=== PATIENT | male | born 1945 | race Caucasian/White ===

== ENCOUNTER → 2017-09-28 | Outpatient (CLI) | payer MEDICARE, MEDICAID ==
[~2017-09-28] MED LIST: ALLOPURINOL 30300 M1 PO; ASPIR 8181 MG PO; CALCIUM 600 +1 EAC2 PO; CARDIZEM CD120 MG PO; COUMADIN 3 MG TA3 M1 PO; COUMADIN 5 MG TA5 M1 PO; KEFLEX500 M1 PO; LASIX 40 MG TAB40 M2 PO; LOPRESSOR100 M1 PO; NORCO 5-325 TA1 EACH PO; POTASSIUM20 PO; PRINIVIL5 MG PO; SORINE 80 MG TA80 M1 PO; ZANTAC 150MG T150 M1 PO; ZOCOR20 MG PO
[2017-09-28 14:13] LABS: ABSOLUTE BASOPHILS 0.1 thou/uL (0.0-0.2); ABSOLUTE EOSINOPHILS 0.2 thou/uL (0.0-0.7); ABSOLUTE LYMPHOCYTES 1.4 thou/uL (0.8-5.3); ABSOLUTE MONOCYTES 0.6 thou/uL (0.0-1.2); ABSOLUTE NEUTROPHILS 6.1 thou/uL (1.6-8.1); BASOPHILS 0.7 %; HEMATOCRIT 45.5 % (42.0-52.0); HEMOGLOBIN 15.1 gm/dL (14.0-18.0); LYMPHOCYTES 17.1 %; MCH 30.3 pg (26.0-34.0); MCHC 33.1 g/dL (28.0-37.0); MCV 91.6 fL (80.0-100.0); MONOCYTES 7.3 %; MPV 10.4 fl. (7.2-11.1); NUCLEATED RBCS 0 /100WBC; PLATELET COUNT* 174 thou/uL (150-400); POLYS 72.9 %; RBC 4.97 mil/uL (4.50-6.00); RDW-CV 15.1 % (10.5-14.5); WBC 8.3 thou/uL (4.0-11.0)
[2017-09-28 14:26] LABS: ALBUMIN 4.1 g/dL (3.4-5.0); CALCIUM 8.8 mg/dL (8.5-10.1); CREATININE 1.2 mg/dL (0.6-1.3); POTASSIUM 4.2 mmol/L (3.5-5.1); TOTAL BILIRUBIN 0.5 mg/dL (<0.1-1.0); TOTAL PROTEIN 7.1 g/dL (6.4-8.2)
== END ==
LOC: M.LAB 13:54
PROVIDERS: Nurse Practitioner
DX: R00.2 Palpitations (principal)

== ENCOUNTER 2017-12-22 09:16 | Inpatient (IN) | payer MEDICARE, MEDICAID ==
[~2017-12-22] VITALS: Ht 182.9 cm; Wt 81.2 kg
[2017-12-22 09:45] VITALS: BP 139/84
[2017-12-22 10:05] LABS: HEMATOCRIT 45.6 % (42.0-52.0); HEMOGLOBIN 15.2 gm/dL (14.0-18.0); MCH 30.3 pg (26.0-34.0); MCHC 33.3 g/dL (28.0-37.0); MCV 91.1 fL (80.0-100.0); MPV 10.3 fl. (7.2-11.1); WBC 5.9 thou/uL (4.0-11.0)
[2017-12-22 10:15] LABS: ANION GAP 4 mmol/L (7-16); BUN 18 mg/dL (7-18); CHLORIDE 103 mmol/L (98-107); CO2 34 mmol/L (21-32); CREATININE 1.1 mg/dL (0.6-1.3); GLUCOSE 120 mg/dL (70-99); POTASSIUM 4.2 mmol/L (3.5-5.1); SODIUM 141 mmol/L (136-145)
[2017-12-22] MEDS ORDERED: PRINIVIL5 MG PO (10:15)
[2017-12-22] MEDS ORDERED: ASPIR 8181 MG PO (10:15)
[2017-12-22] MEDS ORDERED: ZANTAC 150MG T150 M1 PO (10:16)
[2017-12-22] MEDS ORDERED: ALLOPURINOL 30300 M1 PO (10:17)
[2017-12-22] MEDS ORDERED: CALCIUM 600 +1 EAC2 PO (10:18)
[2017-12-22] MEDS ORDERED: LASIX 40 MG TAB40 M2 PO (10:18)
[2017-12-22 10:19] LABS: ALBUMIN 4.2 g/dL (3.4-5.0); ALKALINE PHOSPHATASE 64 U/L (46-116); CHOLESTEROL 167 mg/dL (<200); HDL CHOLESTEROL 58 mg/dL (>40); LDL CHOLESTEROL 94 mg/dL (<100); SERUM ASSESSMENT Clear; SGOT 22 U/L (15-37); SGPT 21 U/L (30-65); TC:HDL 2.9 Ratio (Not establshd); TOTAL BILIRUBIN 0.9 mg/dL (<0.1-1.0); TOTAL PROTEIN 7.4 g/dL (6.4-8.2); TRIGLYCERIDE 77 mg/dL (<150); VLDL 15 mg/dL (<40)
[2017-12-22] MEDS ORDERED: ZOCOR20 MG PO (10:19)
[2017-12-22] MEDS ORDERED: POTASSIUM20 PO (10:19)
[2017-12-22] MEDS ORDERED: CARDIZEM CD120 MG PO (10:20)
[2017-12-22] MEDS ORDERED: COUMADIN 3 MG TA3 M1 PO (10:22)
[2017-12-22] MEDS ORDERED: COUMADIN 5 MG TA5 M1 PO (10:23)
[2017-12-22 10:25] LABS: INR 2.4; PROTIME 23.3 Seconds (9.20-11.50)
[2017-12-22] MEDS ORDERED: LOPRESSOR100 M1 PO (10:29)
[2017-12-22 12:04] VITALS: BP 137/80
[2017-12-22 16:03] VITALS: BP 111/78
--- NOTE | 2017-12-22 18:19 | EKG ---
[place] [address] ELECTROCARDIOGRAM REPORT Name: BETTIE MADDEN Room: [address] ADM IN 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
[2017-12-22 20:00] VITALS: BP 102/74
[2017-12-23] VITALS (13 sets, daily range): BP systolic 106–140; BP diastolic 65–87
[2017-12-23 04:51] LABS: INR 2.8; PROTIME 27.2 Seconds (9.20-11.50)
--- NOTE | 2017-12-23 13:49 | EKG ---
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 : 1945 Requested By: Antoni Bond Order Number: [id number] Eliseo MD: Antoni Bond Measurements Intervals [place] Rate: 100 P: [place]: QRS: 47 QRSD: 99 T: 26 QT: 368 QTc: 475 Interpretive Statements Atrial flutter Multiple ventricular premature complexes Compared to ECG 12/22/2017 10:09:33 Right bundle-branch block no longer present Electronically Signed On 12-23-2017 13:49:29 CDT by Antoni Bond [email or web address] <ELECTRONICALLY SIGNED> By: Antoni Bond MD, [facility] 12/23/17 1349 0805 0805 Antoni Bond MD, [facility] /EPI
--- NOTE | 2017-12-23 17:05 | EKG ---
[place] [address] ELECTROCARDIOGRAM REPORT Name: BETTIE MADDEN Room: [address] IN 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 : 1945 Requested By: Antoni Bond Order Number: [id number] Eliseo MD: Antoni Bond Measurements Intervals [place] Rate: 69 P: [place]: QRS: 58 QRSD: 109 T: 56 QT: 457 QTc: 490 Interpretive Statements Atrial flutter with predominant 4:1 AV block RSR' in V1 or V2, right VCD or RVH Compared to ECG 12/23/2017 08:05:44 Ventricular premature complex(es) no longer present Electronically Signed On 12-23-2017 17:05:38 CDT by Antoni Bond [email or web address] <ELECTRONICALLY SIGNED> By: Antoni Bond MD, [facility] 12/23/17 1705 1313 1313 Antoni Bond MD, [facility] /EPI
--- NOTE | 2017-12-23 17:06 | EKG ---
[place] [address] ELECTROCARDIOGRAM REPORT Name: BETTIE MADDEN Room: [address] ADM IN [facility]#: [id number] Admission: 12/22/17 Attend Phys: Antoni Bond MD, F Discharge: Date of : 49 Report #: [id number] THIS REPORT FOR: //name// [facility] Test Date: 2017-12-23 Test Time: 13:29:04 Pat Name: BETTIE MADDEN Department: Room: [address] Gender: M Director Of Operations: BS : 1945 Requested By: Antoni Bond Order Number: [id number] Eliseo MD: Antoni Bond Measurements Intervals [place] Rate: 69 P: 47 [place]: 190 QRS: 48 QRSD: 91 T: 45 QT: 426 QTc: 457 Interpretive Statements Sinus rhythm early transition Electronically Signed On 12-23-2017 17:06:25 CDT by Antoni Bond [email or web address] <ELECTRONICALLY SIGNED> By: Antoni Bond MD, [facility] 12/23/17 1706 1329 1329 Antoni Bond MD, FACC /EPI
--- NOTE | 2017-12-23 18:28 | CARDNUC ---
[place] [address] CARDIAC NUCLEAR IMAGING REPORT Name: BETTIE MADDEN Room: [address] IN [facility]#: [id number] Admission: 12/22/17 Attend Phys: Antoni Bond MD Discharge: Date of : 49 Date of Service: 12/23/17 1827 Report #: [id number] THIS REPORT FOR: //name// APPROVED REPORT Study performed: 12/22/2017 14:38:00 Exam: Nuclear Stress Test Indication: dyspnea, tachycardia, a fib Patient Location: In-Patient Room #: 215 Stress Tech: Adriana Hitchcock Stress Nurse: Maggy Pompa RN NM Tech:DALJIT Hutchinson Ht: 6 ft 0 in Wt: 183 lbs BSA: 2.05 m2 BMI: 24.81 Medical History Medical History: cabg, cad, hypertension, a fib Medications: sotal, warfarin, atorvastatin, diltiazem Allergies: nkda Cardiac Risk Factors: age, hyperlipidemia, hypertension, family history Previous Cardiac Procedures: cabg Exercise History: Physically active Stress Test Details Stress Test: Pharmacologic stress testing performed using 0.4 mg of regadenoson per 5 mL given IV over 10 seconds. Reason for pharmacologic stress test: a fib. HR Resting HR: 98 bpm Max Heart Rate (APMHR): 150 bpm Max HR Achieved: 93 bpm Target HR (85% APMHR): 127 bpm % of APMHR: 62 Recovery HR: 98 bpm BP Resting BP: 128/98 mmHg Max BP: 155/83 mmHg ECG Resting ECG: atrial flutter with unifocal [place] [address] CARDIAC NUCLEAR IMAGING REPORT Name: BETTIE MADDEN Room: [address]#: [id number] Admission: 12/22/17 Attend Phys: Antoni Bond MD Discharge: Date of : 49 Date of Service: 12/23/17 1827 Report #: [id number] Stress ECG: atrial flutter with unifocal premature ventricular contractions ST Change: None Recovery ECG: atrial flutter with unifocal premature ventricular contractions Recovery ST Change: None Clinical Reason for Termination: Completed protocol Stress Symptoms: none Exercise duration: 0 min sec Exercise capacity: 1 METs Functional Aerobic Impairment 65% The patient tolerated Lexiscan infusion without significant symptoms. Nurse Comments pt tolerated well Stress ECG Conclusion The baseline 12-lead electrocardiogram shows atrial flutter with a controlled ventricular response rate. There are unifocal premature ventricular contractions noted in a pattern of trigeminy. EKGs obtained during and post Lexiscan infusion showed continued atrial flutter with no significant ST or T wave changes when compared to baseline. NM EXAM: Myocardial Perfusion REST/STRESS Imaging Protocol: Rest Tc-99m/Stress Tc-99m 2 days Resting Data Rest SPECT myocardial perfusion imaging was performed in supine position 30 minutes following the intravenous injection of 12.0 mCi of Tc-99m Sestamibi. Time of rest injection: 1450 Date: 12/22/2017 Time of rest imagin The images were gated to evaluate regional wall motion and calculate left ventricular ejection fraction. Administration Route: IV Administration Site: Right AC Pharmacologic Stress Pharmacologic stress test was performed by injecting Regadenoson 0.4 mg IV push followed by the intravenous injection of 34.7 mCi of Tc-99m Sestamibi. Time of stress injection: 909 Date: 12/23/2017 [place] [address] CARDIAC NUCLEAR IMAGING REPORT Name: BETTIE MADDEN Room: [address]#: [id number] Admission: 12/22/17 Attend Phys: Antoni Bond MD Discharge: Date of : 49 Date of Service: 12/23/17 1827 Report #: [id number] Time of stress imagin Administration Route: IV Administration Site: Right AC Gated Stress SPECT was performed 40 minutes after stress injection. The images were gated to evaluate regional wall motion and calculate left ventricular ejection fraction. Prone imaging was performed. Study Quality Study: Good Artifact: Mild Diaphragmatic artifact Study Data At rest, the left ventricular ejection fraction was 43%.. Post stress, the left ventricular ejection was 48%.. TID = 1.54. Perfusion There is a small in size moderate intensity reversible defect involving the inferoapical wall. No other significant fixed or reversible defects identified. Wall Motion There is a septal wall motion abnormality noted consistent with prior bypass procedure. There is hypokinesis noted of the distal anteroapical wall. Nuclear Conclusion ECG Findings: negative for ischemia Clinical Findings: negative for ischemia Nuclear Findings: positive for ischemia Exercise Capacity: not assessed Left Ventricular Function: abnormal Risk Study: moderate Myocardial perfusion images suggest stress-induced ischemia the inferoapical wall. There are wall motion abnormalities as noted above. In addition there is transient ischemic dilatation noted. This is a moderate risk study. <Conclusion> The baseline 12-lead electrocardiogram shows atrial flutter with a controlled ventricular response rate. There are unifocal premature ventricular contractions noted in a pattern of trigeminy. EKGs obtained during and post Lexiscan infusion [place] [address] CARDIAC NUCLEAR IMAGING REPORT Name: BETTIE MADDEN Room: [address] IN [facility]#: [id number] Admission: 12/22/17 Attend Phys: Antoni Bond MD Discharge: Date of : 49 Date of Service: 12/23/17 1827 Report #: [id number] flutter with no significant ST or T wave changes when compared to baseline. <ELECTRONICALLY SIGNED> By: Aiden Dickinson MD, FACC 12/23/171826 26 26 Aiden Dickinson MD, FACC /INF
[2017-12-24] VITALS: BP 124/75
[2017-12-24 04:00] VITALS: BP 116/68
[2017-12-24 05:07] LABS: INR 2.2; PROTIME 20.9 Seconds (9.20-11.50)
[2017-12-24 08:15] VITALS: BP 146/91
[2017-12-24 09:08] VITALS: BP 146/91
[2017-12-24] MEDS ORDERED: SORINE 80 MG TA80 M1 PO (11:13)
--- NOTE | 2017-12-24 11:51 | EKG ---
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: [facility] : 1945 Requested By: Antoni Bond Order Number: [id number] Eliseo MD: Antoni Bond Measurements Intervals [place] Rate: 94 P: 53 VT: 188 QRS: 57 QRSD: 98 T: 56 QT: 386 QTc: 483 Interpretive Statements Sinus rhythm Multiple ventricular premature complexes Borderline prolonged QT interval Compared to ECG 12/23/2017 13:29:04 Ventricular premature complex(es) now present Electronically Signed On 12-24-2017 11:51:00 CDT by Antoni Bond [email or web address] <ELECTRONICALLY SIGNED> By: Antoni Bond MD, [facility] 12/24/17 1151 1716 1716 Antoni Bond MD, [facility] /EPI
[2017-12-24 11:59] VITALS: BP 128/77
--- NOTE | 2017-12-24 12:01 | EKG ---
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
--- NOTE | 2018-01-19 12:51 | CARD ---
[address] [address] CARDIAC CATH REPORT Name: BETTIE MADDEN Room: [address] IN .#: [id number] Admission: 12/22/17 Attend Phys: Antoni Bond MD, F Discharge: 12/24/17 Date of : 49 Report #: [id number] THIS REPORT FOR: //name// CC: Primo Diallo [facility] physician/PCP DATE OF SERVICE: 12/23/2017 TITLE OF PROCEDURE: Direct current cardioversion. INDICATIONS: Atrial fibrillation. PROCEDURE: The patient had a history of atrial fibrillation and had been chronically anticoagulated with warfarin. INR was therapeutic at the time of the procedure. The patient was brought to the cardiac cath holding area in the fasting state. Hands free cardioversion patches were applied in the anterior and posterior location. Moderate sedation was accomplished by administering both intravenous Versed and fentanyl. Cardioversion was applied using direct current energy at 360 joules. The patient converted from atrial fibrillation to normal sinus rhythm. The patient was aroused at the end of procedure and was transferred to a monitored bed in stable condition. The patient tolerated the procedure well. IMPRESSION: Successful cardioversion of atrial fibrillation to normal sinus rhythm. <ELECTRONICALLY SIGNED> By: Antoni Bond MD, [facility] 01/19/18 1251 1551 0029David Tova Bond MD, FACC /nt
== END 2017-12-24 13:30 | disposition home or self-care (01) | DRG 309 ==
LOC: M.TBA 09:16 → M.2W 09:16
PROVIDERS: ADMIT Internal Medicine Cardiovascular Disease
PROC: 5A2204Z Restoration of Cardiac Rhythm, Single (ICD-10-PCS; principal; 2017-12-23)
DX: I48.91 Unspecified atrial fibrillation (principal); D68.59 Other primary thrombophilia; I10 Essential (primary) hypertension; I25.10 Atherosclerotic heart disease of native coronary artery without angina pectoris; E78.5 Hyperlipidemia, unspecified; I49.3 Ventricular premature depolarization; I65.29 Occlusion and stenosis of unspecified carotid artery; I48.92 Unspecified atrial flutter; I73.9 Peripheral vascular disease, unspecified; Z95.1 Presence of aortocoronary bypass graft; Z79.82 Long term (current) use of aspirin; Z87.891 Personal history of nicotine dependence; Z79.899 Other long term (current) drug therapy; Z82.49 Family history of ischemic heart disease and other diseases of the circulatory system

== ENCOUNTER 2018-04-18 10:08 | Emergency (ER) | payer MEDICARE, MEDICAID ==
[~2018-04-18] VITALS: Ht 182.9 cm; Wt 79.4 kg
[~2018-04-18 10:08] MED LIST changes: -KEFLEX500 M1 PO; -NORCO 5-325 TA1 EACH PO
[2018-04-18] MEDS ORDERED: KEFLEX500 M1 PO (11:02)
[2018-04-18] MEDS ORDERED: NORCO 5-325 TA1 EACH PO (11:02)
[2018-04-18 11:09] VITALS: BP 122/66
== END 2018-04-18 11:10 | disposition home or self-care (01) ==
LOC: M.ERS 10:08
DX: L03.114 Cellulitis of left upper limb (principal); I48.91 Unspecified atrial fibrillation; I10 Essential (primary) hypertension; Z79.01 Long term (current) use of anticoagulants

== ENCOUNTER → 2018-11-24 | Outpatient (CLI) | payer MEDICARE, MEDICAID ==
[~2018-11-24] MED LIST changes: +KEFLEX500 M1 PO; +NORCO 5-325 TA1 EACH PO
--- NOTE | 2018-11-24 17:23 | CARDNUC ---
[place] [address] CARDIAC NUCLEAR IMAGING REPORT Name: BETTIE MADDEN JR Room: [facility]#: [id number] Admission: 11/24/18 Attend Phys: Aiden Dickinson, Discharge: Date of : 49 Date of Service: 11/24/18 1723 Report #: [id number] THIS REPORT FOR: //name// APPROVED REPORT Study performed: 11/24/2018 12:30:00 Indication: Chest pain Patient Location: Out-Patient Stress Tech: Adriana Hitchcock Stress Nurse: Maggy Pompa RN Ht: 6 ft 0 in Wt: 175 lbs BSA: 2.01 m2 BMI: 23.73 Medical History Medical History: mitral valve repair, cad, cabg, hyperlipidemia, hypertension Medications: sotolol, diltiazem, furosemide, lisinopril, kcl, simvastatin, warfarin Allergies: nkda Cardiac Risk Factors: age, hyperlipidemia, hypertension Previous Cardiac Procedures: cabg, reese valve repair Exercise History: Indeterminate Resting Data Rest SPECT myocardial perfusion imaging was performed in supine position 30 minutes following the intravenous injection of 11.0 mCi of Tc-99m Sestamibi. Time of rest injection: 13:00 The images were gated to evaluate regional wall motion and calculate left ventricular ejection fraction. Administration Route: IV Administration Site: Right AC Pharmacologic Stress Pharmacologic stress test was performed by injecting Regadenoson 0.4 mg IV push over 10-15 seconds immediately followed by the intravenous injection of 31.9 mCi of Tc-99m Sestamibi. Time of stress injection: 14:45 Administration Route: IV Administration Site: Right AC Heart Rate at time of stress injection: 73 bpm. Gated Stress SPECT was performed 40 [place] [address] CARDIAC NUCLEAR IMAGING REPORT Name: BETTIE MADDEN JR Room: [facility]#: [id number] Admission: 11/24/18 Attend Phys: Aiden Dickinson, Discharge: Date of : 49 Date of Service: 11/24/18 1723 Report #: [id number] The images were gated to evaluate regional wall motion and calculate left ventricular ejection fraction. Prone imaging was performed. Stress Test Details Stress Test: Pharmacologic stress testing performed using 0.4 mg of regadenoson per 5 mL given IV over 10 seconds. Reason for pharmacologic stress test: a fib, pt on sotolol. HR Max Heart Rate (APMHR): 149 bpm Resting HR: 60 bpm Target HR (85% APMHR): 126 bpm Max HR Achieved: 73 bpm % of APMHR: 48 Recovery HR: 71 bpm BP Resting BP: 134/81 mmHg Max BP: 125/72 mmHg Recovery BP: 125/72 mmHg ECG Resting ECG: Sinus Rhythm Stress ECG: Sinus Rhythm ST Change: None Arrhythmia: None Recovery ECG: Sinus Rhythm Recovery ST Change: None Recovery Arrhythmia: None Clinical Reason for Termination: Completed protocol Exercise duration: 0 min sec Exercise capacity: 1 METs The patient tolerated Lexiscan infusion without significant symptoms. Stress ECG Conclusion The baseline 12-lead EKG show sinus rhythm with no significant ST or T wave abnormality. EKGs obtained during and post Lexiscan infusion show sinus rhythm with no significant ST or T wave changes when compared to baseline. There were no stress-induced arrhythmias. Study Quality Study: Good Artifact: [place] [address] CARDIAC NUCLEAR IMAGING REPORT Name: BETTIE MADDEN JR Room: [facility]#: [id number] Admission: 11/24/18 Attend Phys: Aiden Dickinson, Discharge: Date of : 49 Date of Service: 11/24/18 1723 Report #: [id number] Study Data At rest, the left ventricular ejection fraction was 69%.. Post stress, the left ventricular ejection was 66%.. TID = 1.08. Perfusion Myocardial perfusion images obtained at rest and post Lexiscan stress in the supine position show mild photopenia of the inferior wall that resolves completely with post stress prone imaging suggesting diaphragmatic attenuation artifact. There is a focal fixed defect of mild intensity in the apex. Gated study showed normal wall motion in this region suggesting apical thinning artifact. Wall Motion There is a septal wall motion abnormality noted consistent with prior bypass procedure. There were no other focal wall motion abnormalities noted. Global LV systolic function is normal. Nuclear Conclusion ECG Findings: negative for ischemia Clinical Findings: negative for ischemia Nuclear Findings: negative for ischemia Exercise Capacity: not assessed Left Ventricular Function: preserved Risk Study: low The fixed apical defect noted on myocardial perfusion images is likely due to apical thinning artifact. No other significant fixed or reversible defects were identified. Global LV systolic function is normal. This is a low risk study. <Conclusion> The baseline 12-lead EKG show sinus rhythm with no significant ST or T wave abnormality. EKGs obtained during and post Lexiscan infusion show sinus rhythm with no significant ST or T wave changes when compared to baseline. There were no stress-induced arrhythmias. <ELECTRONICALLY SIGNED> By: Aiden Dickinson MD, FACC 11/24/18 1723 [id number] Aiden Dickinson MD, FACC /INF
== END ==
LOC: M.NUC 11-04 12:31
DX: R07.9 Chest pain, unspecified (principal); R06.09 Other forms of dyspnea; I25.10 Atherosclerotic heart disease of native coronary artery without angina pectoris; I10 Essential (primary) hypertension; E78.5 Hyperlipidemia, unspecified; I65.23 Occlusion and stenosis of bilateral carotid arteries; I48.91 Unspecified atrial fibrillation; I73.9 Peripheral vascular disease, unspecified; Z95.1 Presence of aortocoronary bypass graft; Z98.890 Other specified postprocedural states; Z79.01 Long term (current) use of anticoagulants; Z82.49 Family history of ischemic heart disease and other diseases of the circulatory system; Z87.891 Personal history of nicotine dependence

== ENCOUNTER → 2019-01-10 | Outpatient (CLI) | payer MEDICARE, MEDICAID | LOC: M.LAB 07:30 → M.MRI 08:30 | PROVIDERS: Family Medicine | DX: I67.82 Cerebral ischemia (principal) ==

== ENCOUNTER → 2019-05-25 | Outpatient (CLI) | payer MEDICARE, MEDICAID ==
[2019-05-25 08:13] LABS: ALBUMIN 3.8 g/dL (3.4-5.0); ALKALINE PHOSPHATASE 65 U/L (46-116); DIRECT BILIRUBIN 0.1 mg/dL (<0.1-0.3); SGOT 16 U/L (15-37); SGPT 24 U/L (30-65); TOTAL BILIRUBIN 0.6 mg/dL (<0.1-1.0); TOTAL PROTEIN 6.9 g/dL (6.4-8.2)
[2019-05-25 08:49] LABS: CHOLESTEROL 159 mg/dL (<200); HDL CHOLESTEROL 53 mg/dL (>40); LDL CHOLESTEROL 92 mg/dL (<100); TRIGLYCERIDE 71 mg/dL (<150); VLDL 14 mg/dL (<40)
[2019-05-25 08:55] LABS: SERUM ASSESSMENT Clear
== END ==
LOC: M.LAB 07:24
PROVIDERS: Nurse Practitioner
DX: E78.5 Hyperlipidemia, unspecified (principal)

== ENCOUNTER 2021-02-14 08:42 | Emergency (ER) | payer MEDICARE, MEDICAID ==
[~2021-02-14] VITALS: Ht 182.9 cm; Wt 81.7 kg
[2021-02-14] MEDS ORDERED: LIPITOR10 MG PO (09:01)
[2021-02-14 10:30] LABS: URINE BILIRUBIN NEGATIVE (Negative); URINE BLOOD NEGATIVE (Negative); URINE CLARITY CLEAR; URINE COLOR YELLOW; URINE GLUCOSE-RANDOM NEGATIVE (Negative); URINE KETONES NEGATIVE (Negative); URINE LEUKOCYTES-REFLEX NEGATIVE (Negative); URINE NITRITE-REFLEX NEGATIVE (Negative); URINE PROTEIN NEGATIVE (Negative); URINE SPECIFIC GRAVITY 1.015 (1.005-1.030); URINE UROBILINOGEN 0.2 E.U./dl (0.2-1.0)
[2021-02-14] MEDS ORDERED: HYDROCODON-ACE1 EAC7 PO (11:16)
[2021-02-14] MEDS ORDERED: FLEXERIL PO (11:16)
[2021-02-14] MEDS ORDERED: PREDNISONE 20 M20 M1 PO (11:16)
[2021-02-14 11:28] VITALS: BP 109/71
== END 2021-02-14 11:29 | disposition home or self-care (01) ==
LOC: M.ERS 08:42
PROVIDERS: Family Medicine
DX: M54.5 Low back pain (principal); I10 Essential (primary) hypertension; I48.91 Unspecified atrial fibrillation